=== PATIENT | female | born 1985 | race Caucasian/White ===

== ENCOUNTER 2022-04-22 10:46 | Emergency (ER) | payer MEDICAID ==
[~2022-04-22] VITALS: Ht 165.1 cm; Wt 70.0 kg
[~2022-04-22 10:46] MED LIST: INSU100V36 SQ; LANTUS SQ; ONDA8TAB9 PO; pantoprazole 40MG/NS 100ML BAG 100 ML IV ONE
[2022-04-22] MEDS ORDERED: pantoprazole 40 MG vial IV ONE (12:00)
[2022-04-22] MEDS ORDERED: normal saline 1000ML IV soln IVB ONE (12:00)
[2022-04-22] MEDS ORDERED: ondansetron/PF 4mg/2ml inj IV ONE (12:00)
[2022-04-22] MEDS ORDERED: LORazepam 2 mg/ml vial IV ONE (12:00)
[2022-04-22] MEDS ORDERED: pantoprazole 40MG/NS 100ML BAG 100 ML IV ONE (12:05)
[2022-04-22 12:50] LABS: BASOPHILS # (AUTO) 0.1 X10'3 (0-0.2); BASOPHILS % (AUTO) 0.6 % (0-1); EOSINOPHILS % (AUTO) 0.3 % (0-6); HEMATOCRIT 44.2 % (35.0-45.0); HEMOGLOBIN 14.5 g/dl (12.0-16.0); LYMPHOCYTES % (AUTO) 7.2 % (21-51); MEAN CORPUSCULAR HEMOGLOBIN 29.9 PG (27.0-31.0); MEAN CORPUSCULAR HGB CONC 32.7 g/dL (33.0-36.5); MEAN CORPUSCULAR VOLUME 91.4 FL (78-98); MEAN PLATELET VOLUME 8.2 FL (7.4-10.4); MONOCYTES # (AUTO) 0.3 X10'3 (0-0.9); MONOCYTES % (AUTO) 2.1 % (2-12); NEUTROPHILS # (AUTO) 13.1 X10'3 (1.8-7.7); NEUTROPHILS % (AUTO) 89.8 % (42-75); PLATELET COUNT 367 X10'3 (140-440); RED BLOOD COUNT 4.83 X10'6 (4.20-5.60); RED CELL DISTRIBUTION WIDTH 13.7 % (11.5-14.5); WHITE BLOOD COUNT 14.6 X10'3 (4.5-11.0)
[2022-04-22 13:09] LABS: HCG SERUM QL NEGATIVE
[2022-04-22 13:12] LABS: ALANINE AMINOTRANSFERASE 25 U/L (12-78); ALBUMIN 3.8 G/DL (3.4-5.0); ALKALINE PHOSPHATASE 44 IU/L (46-116); ANION GAP 8 (8-16); ASPARTATE AMINO TRANSFERASE 14 U/L (10-37); BILIRUBIN,TOTAL 0.5 MG/DL (0.1-1.0); BLOOD UREA NITROGEN 11 MG/DL (7-18); BUN/CREATININE RATIO 16.9 (6.6-38.0); CALCIUM 8.5 MG/DL (8.5-10.1); CHLORIDE 103 MMOL/L (99-107); CREATININE 0.65 MG/DL (0.40-0.90); GLUCOSE 275 MG/DL (70-104); LIPASE 52 U/L (73-393); POTASSIUM 3.8 MMOL/L (3.5-5.1); SODIUM 137 MMOL/L (135-145); TOTAL CARBON DIOXIDE 26.5 MMOL/L (24-32); TOTAL PROTEIN 7.5 G/DL (6.4-8.2); eGFR > 90 ML/MIN
[2022-04-22] MEDS ORDERED: PANT-47 PO (13:45)
[2022-04-22] MEDS ORDERED: ONDA8TAB13 PO (13:45)
[2022-04-22] MEDS ORDERED: metoclopramide 5 mg/ml inj IV ONE (14:00)
[2022-04-22 14:10] LABS: CLARITY,URINE SLIGHTLY CLOUDY (Clear); GLUCOSE, URINE >=1000 mg/dl (Neg); KETONES,URINE >=80 mg/dl (Neg); LEUKOCYTE ESTERASE ,URINE NEGATIVE (Neg); NITRITES, URINE POSITIVE (Neg); OCCULT BLOOD,URINE NEGATIVE (Neg); PH,URINE 6.5 (4.8-8.0); PROTEIN,URINE NEGATIVE (Neg); UROBILINOGEN,URINE 0.2 E.U/dL (0.2-1.0)
[2022-04-22 14:13] LABS: COLOR,URINE STRAW (Yellow); UA COLLECTION TYPE NON-SPECIFIED
[2022-04-22 14:17] LABS: BACTERIA,URINE 4+ /HPF (Neg); MUCUS STRANDS NONE SEEN /LPF (Neg); RBC,URINE NONE SEEN /HPF (0-2); SQUAMOUS EPITHELIAL CELL,UR MODERATE /LPF (FEW); TRANSITIONAL EPI CELLS,URINE FEW /HPF; WBC,URINE 0-4 /HPF (0-4)
[2022-04-22] MEDS ORDERED: NITR100C6 PO (14:30)
[2022-04-22 15:46] VITALS: BP 105/74
== END 2022-04-22 15:52 | disposition home or self-care (01) ==
LOC: ER 10:47
DX: K29.70 Gastritis, unspecified, without bleeding (principal); N39.0 Urinary tract infection, site not specified; E11.9 Type 2 diabetes mellitus without complications; F17.200 Nicotine dependence, unspecified, uncomplicated; Z88.8 Allergy status to other drugs, medicaments and biological substances; Z79.899 Other long term (current) drug therapy; Z79.84 Long term (current) use of oral hypoglycemic drugs
CPT/HCPCS: 36415; 71045; 80053; 81001; 82009; 83690; 84703; 85025; 87088; 87186; 96374; 96375; 99284; C9113; J2060; J2405; J2765; J7030; 87077

== ENCOUNTER 2022-11-20 16:53 | Emergency (ER) | payer MEDICAID ==
[~2022-11-20] VITALS: Ht 152.4 cm; Wt 53.6 kg
[~2022-11-20 16:53] MED LIST changes: +NITR100C6 PO; +ONDA8TAB13 PO; +PANT-47 PO; -pantoprazole 40MG/NS 100ML BAG 100 ML IV ONE
[2022-11-20] MEDS ORDERED: normal saline 1000ML IV soln IVB ONE (17:55)
[2022-11-20] MEDS ORDERED: morphine 4 MG/ML inj SYRINge IV PRN (17:55)
[2022-11-20] MEDS ORDERED: ondansetron/PF 4mg/2ml inj IV ONE (17:55)
[2022-11-20 18:41] LABS: BASOPHILS # (AUTO) 0.1 X10'3 (0-0.2); BASOPHILS % (AUTO) 0.6 % (0-1); EOSINOPHILS % (AUTO) 0 % (0-6); HEMATOCRIT 40.9 % (35.0-45.0); HEMOGLOBIN 13.5 g/dl (12.0-16.0); LYMPHOCYTES # (AUTO) 0.9 X10'3 (1.1-4.8); LYMPHOCYTES % (AUTO) 4.5 % (21-51); MEAN CORPUSCULAR HEMOGLOBIN 30.7 PG (27.0-31.0); MONOCYTES # (AUTO) 0.4 X10'3 (0-0.9); MONOCYTES % (AUTO) 1.9 % (2-12); NEUTROPHILS # (AUTO) 18.2 X10'3 (1.8-7.7); PLATELET COUNT 374 X10'3 (140-440); RED BLOOD COUNT 4.39 X10'6 (4.20-5.60); RED CELL DISTRIBUTION WIDTH 13.6 % (11.5-14.5); WHITE BLOOD COUNT 19.6 X10'3 (4.5-11.0)
[2022-11-20 18:47] LABS: ALANINE AMINOTRANSFERASE 38 U/L (12-78); ALBUMIN 4.1 G/DL (3.4-5.0); ALBUMIN/GLOBULIN RATIO 1.3 (1.1-1.5); ALKALINE PHOSPHATASE 54 IU/L (46-116); ANION GAP 11 (8-16); ASPARTATE AMINO TRANSFERASE 27 U/L (10-37); BILIRUBIN,TOTAL 0.9 MG/DL (0.1-1.0); BLOOD UREA NITROGEN 15 MG/DL (7-18); BUN/CREATININE RATIO 23.8 (10.0-20.0); CALCIUM 8.4 MG/DL (8.5-10.1); CHLORIDE 107 MMOL/L (99-107); CREATININE 0.63 MG/DL (0.40-0.90); GLUCOSE 317 MG/DL (70-104); POTASSIUM 3.8 MMOL/L (3.5-5.1); SODIUM 140 MMOL/L (135-145); TOTAL CARBON DIOXIDE 22.2 MMOL/L (24-32); TOTAL PROTEIN 7.3 G/DL (6.4-8.2); eGFR > 90 ML/MIN
[2022-11-20 18:51] LABS: LIPASE < 50 U/L (73-393)
[2022-11-20 19:39] LABS: CLARITY,URINE CLEAR (Clear); COLOR,URINE YELLOW (Yellow); GLUCOSE, URINE >=1000 mg/dl (Neg); KETONES,URINE >=80 mg/dl (Neg); LEUKOCYTE ESTERASE ,URINE NEGATIVE (Neg); NITRITES, URINE NEGATIVE (Neg); OCCULT BLOOD,URINE TRACE-INTACT (Neg); PROTEIN,URINE NEGATIVE (Neg); UROBILINOGEN,URINE 0.2 E.U/dL (0.2-1.0)
[2022-11-20 19:41] LABS: PREOP HCG, QL SERUM NEGATIVE (NEGATIVE)
[2022-11-20 19:42] LABS: UA COLLECTION TYPE CLN CATCH MIDSTREAM
[2022-11-20 19:44] LABS: BACTERIA,URINE NONE SEEN /HPF (Neg); RBC,URINE 0-2 /HPF (0-2); SQUAMOUS EPITHELIAL CELL,UR MODERATE /LPF (FEW); WBC,URINE 0-4 /HPF (0-4)
[2022-11-20] MEDS ORDERED: iohexol 300mg/ml 100ml inj. ONE (19:52)
[2022-11-20] MEDS ORDERED: normal saline 1000ml 1,000 ML IV ONE (21:05)
[2022-11-20 23:00] VITALS: BP 107/64
[2022-11-20] MEDS ORDERED: magnesium hydroxide 30ml (MOM) UD suspension PO PRN (23:05)
[2022-11-20] MEDS ORDERED: ondansetron/PF 4mg/2ml inj IV PRN (23:05)
[2022-11-20] MEDS ORDERED: potassium Cl 40MEQ/1/2NS 520ml 520 ML IV PRN (23:05)
[2022-11-20] MEDS ORDERED: normal saline 1000ml 1,000 ML IV SCH (23:05)
[2022-11-20] MEDS ORDERED: mag hydrox/Alum hydrox/simeth 30ml oral suspension PO PRN (23:05)
[2022-11-20] MEDS ORDERED: metoclopramide 5 mg/ml inj IV PRN (23:05)
[2022-11-20] MEDS ORDERED: acetaminophen 325mg tablet PO PRN (23:05)
[2022-11-20] MEDS ORDERED: glucagon, human recombinant 1mg kit SUBCUT PRN (23:10)
[2022-11-20] MEDS ORDERED: insulin Lispro (HumaLOG) vial - multi-dose SQ SCH (23:10)
[2022-11-20] MEDS ORDERED: MESSAGE TO PHARMACY PO ONE (23:10)
[2022-11-20] MEDS ORDERED: dextrose 50%-water 50ml dispensing syringe IV PRN ×2 (23:10)
[2022-11-20] MEDS ORDERED: DEXTROSE 15 GM of carb/4 tabs (each vial/BOTTLE has 4 tablets) PO PRN ×2 (23:10)
[2022-11-20 23:46] LABS: HEMOGLOBIN A1C 9.7 % (4.5-6.2)
[2022-11-21] MEDS ORDERED: heparin, porcine 5000 units/ml vial SQ SCH
[2022-11-21] MEDS ORDERED: ONDA8TAB13 PO (00:19)
[2022-11-21] MEDS ORDERED: METO-292 PO (00:19)
--- NOTE | 2022-11-21 00:30 | NUR ---
PT REQUESTED TO LEAVE AMA. MD ANGUIANO AND ER DOCTOR AWARE AND WILL D/C.
[2022-11-21] MEDS ORDERED: K and/or MAG REPLACEMENT MC SCH (08:00)
[2022-11-21] MEDS ORDERED: pantoprazole 40MG/NS 100ML BAG 100 ML IV SCH (08:00)
[2022-11-21] MEDS ORDERED: docusate sod 100mg capsule PO SCH (08:00)
[2022-11-21] MEDS ORDERED: insulin glargine (Lantus) pen - multi-dose SQ SCH (21:00)
== END 2022-11-21 00:31 | disposition left against medical advice (07) ==
LOC: ER 16:53 → ED HOLD 23:03 → UNDOADMIN 23:03 → UNDODISIN 23:59 → ER 11-21 00:31
PROC: B4201ZZ Computerized Tomography (CT Scan) of Abdominal Aorta using Low Osmolar Contrast (ICD-10-PCS; principal; 2022-11-20)
PROC: B4241ZZ Computerized Tomography (CT Scan) of Superior Mesenteric Artery using Low Osmolar Contrast (ICD-10-PCS; 2022-11-20)
PROC: B4281ZZ Computerized Tomography (CT Scan) of Bilateral Renal Arteries using Low Osmolar Contrast (ICD-10-PCS; 2022-11-20)
PROC: B42C1ZZ Computerized Tomography (CT Scan) of Pelvic Arteries using Low Osmolar Contrast (ICD-10-PCS; 2022-11-20)
PROC: B42H1ZZ Computerized Tomography (CT Scan) of Bilateral Lower Extremity Arteries using Low Osmolar Contrast (ICD-10-PCS; 2022-11-20)
PROC: B4211ZZ Computerized Tomography (CT Scan) of Celiac Artery using Low Osmolar Contrast (ICD-10-PCS; 2022-11-20)
DX: K31.1 Adult hypertrophic pyloric stenosis (principal); E11.9 Type 2 diabetes mellitus without complications; F12.90 Cannabis use, unspecified, uncomplicated; Z88.1 Allergy status to other antibiotic agents; Z88.8 Allergy status to other drugs, medicaments and biological substances; Z98.890 Other specified postprocedural states
CPT/HCPCS: 36415; 71045; 74177; 80053; 81001; 82948; 83036; 83690; 84484; 84703; 85025; 96361; 96374; 96375; 99285; J2270; J2405; J2765; J3490; J7030; Q9967; G0378

== ENCOUNTER 2023-01-16 08:40 | Emergency (ER) | payer MEDICAID ==
[~2023-01-16] VITALS: Ht 154.9 cm; Wt 52.3 kg
[~2023-01-16 08:40] MED LIST changes: +METO-292 PO
[2023-01-16 09:41] VITALS: TEMP 98.3
[2023-01-16] MEDS ORDERED: metoclopramide 5 mg/ml inj IV ONE (09:45)
[2023-01-16] MEDS ORDERED: famotidine/PF 10 mg/ml inj IV ONE (09:45)
[2023-01-16] MEDS ORDERED: ondansetron/PF 4mg/2ml inj IV ONE (09:45)
[2023-01-16] MEDS ORDERED: normal saline 1000ML IV soln IVB ONE (09:45)
[2023-01-16 10:14] LABS: BASOPHILS # (AUTO) 0.1 X10'3 (0-0.2); BASOPHILS % (AUTO) 0.4 % (0-1); EOSINOPHILS % (AUTO) 0 % (0-6); HEMATOCRIT 39.8 % (35.0-45.0); HEMOGLOBIN 13.2 g/dl (12.0-16.0); LYMPHOCYTES # (AUTO) 0.9 X10'3 (1.1-4.8); LYMPHOCYTES % (AUTO) 6.6 % (21-51); MEAN CORPUSCULAR HEMOGLOBIN 30.4 PG (27.0-31.0); MEAN CORPUSCULAR HGB CONC 33.3 g/dL (33.0-36.5); MEAN CORPUSCULAR VOLUME 91.4 FL (78-98); MEAN PLATELET VOLUME 8.5 FL (7.4-10.4); MONOCYTES # (AUTO) 0.4 X10'3 (0-0.9); MONOCYTES % (AUTO) 2.9 % (2-12); NEUTROPHILS # (AUTO) 11.8 X10'3 (1.8-7.7); NEUTROPHILS % (AUTO) 90.1 % (42-75); PLATELET COUNT 315 X10'3 (140-440); RED BLOOD COUNT 4.35 X10'6 (4.20-5.60); RED CELL DISTRIBUTION WIDTH 13.2 % (11.5-14.5); WHITE BLOOD COUNT 13.1 X10'3 (4.5-11.0)
[2023-01-16 10:30] LABS: ALANINE AMINOTRANSFERASE 24 U/L (12-78); ALBUMIN 3.6 G/DL (3.4-5.0); ALBUMIN/GLOBULIN RATIO 1.2 (1.1-1.5); ALKALINE PHOSPHATASE 42 IU/L (46-116); ANION GAP 13 (8-16); ASPARTATE AMINO TRANSFERASE 19 U/L (10-37); BILIRUBIN,TOTAL 0.9 MG/DL (0.1-1.0); BLOOD UREA NITROGEN 6 MG/DL (7-18); BUN/CREATININE RATIO 10.2 (10.0-20.0); CALCIUM 7.9 MG/DL (8.5-10.1); CHLORIDE 104 MMOL/L (99-107); CREATININE 0.59 MG/DL (0.40-0.90); GLUCOSE 274 MG/DL (70-104); LIPASE 64 U/L (73-393); MAGNESIUM 1.6 MG/DL (1.5-2.4); POTASSIUM 3.4 MMOL/L (3.5-5.1); SODIUM 141 MMOL/L (135-145); TOTAL CARBON DIOXIDE 23.8 MMOL/L (24-32); TOTAL PROTEIN 6.7 G/DL (6.4-8.2); eGFR > 90 ML/MIN
[2023-01-16] MEDS ORDERED: POTASSIUM BICARB 20meq eff tab 20 MEQ TABLET.EFF PO STA (10:34)
[2023-01-16] MEDS ORDERED: normal saline 1000ml 1,000 ML IV ONE (10:35)
[2023-01-16] MEDS ORDERED: LORazepam 2 mg/ml vial IV ONE (10:45)
[2023-01-16 11:11] VITALS: BP 109/76; PULSE 80; RESP 20; O2SAT 99
[2023-01-16] MEDS ORDERED: PROC25SU2 RC (11:23)
== END 2023-01-16 12:21 | disposition home or self-care (01) ==
LOC: ER 08:41
DX: R11.2 Nausea with vomiting, unspecified (principal); E87.6 Hypokalemia; E11.43 Type 2 diabetes mellitus with diabetic autonomic (poly)neuropathy; K31.84 Gastroparesis; Z88.1 Allergy status to other antibiotic agents; Z88.5 Allergy status to narcotic agent; F17.200 Nicotine dependence, unspecified, uncomplicated; Z79.84 Long term (current) use of oral hypoglycemic drugs
CPT/HCPCS: 36415; 80053; 83690; 83735; 85025; 96361; 96365; 96375; 99284; J2060; J2405; J2765; J3490; J7030

== ENCOUNTER 2023-01-20 10:16 | Emergency (ER) | payer MEDICAID ==
[~2023-01-20] VITALS: Ht 152.4 cm; Wt 51.4 kg
[~2023-01-20 10:16] MED LIST changes: +PROC25SU2 RC
[2023-01-20 10:18] VITALS: TEMP 97.9
[2023-01-20 11:15] LABS: BASOPHILS # (AUTO) 0.1 X10'3 (0-0.2); BASOPHILS % (AUTO) 0.5 % (0-1); EOSINOPHILS % (AUTO) 0.3 % (0-6); HEMATOCRIT 38.3 % (35.0-45.0); HEMOGLOBIN 12.8 g/dl (12.0-16.0); LYMPHOCYTES % (AUTO) 8.6 % (21-51); MEAN CORPUSCULAR HEMOGLOBIN 30.6 PG (27.0-31.0); MEAN CORPUSCULAR HGB CONC 33.4 g/dL (33.0-36.5); MEAN CORPUSCULAR VOLUME 91.5 FL (78-98); MEAN PLATELET VOLUME 8.9 FL (7.4-10.4); MONOCYTES # (AUTO) 0.5 X10'3 (0-0.9); MONOCYTES % (AUTO) 4.5 % (2-12); NEUTROPHILS # (AUTO) 10.4 X10'3 (1.8-7.7); NEUTROPHILS % (AUTO) 86.1 % (42-75); PLATELET COUNT 328 X10'3 (140-440); RED BLOOD COUNT 4.18 X10'6 (4.20-5.60); RED CELL DISTRIBUTION WIDTH 13.3 % (11.5-14.5); WHITE BLOOD COUNT 12.1 X10'3 (4.5-11.0)
[2023-01-20 11:24] LABS: ALANINE AMINOTRANSFERASE 23 U/L (12-78); ALBUMIN 3.6 G/DL (3.4-5.0); ALBUMIN/GLOBULIN RATIO 1.2 (1.1-1.5); ALKALINE PHOSPHATASE 48 IU/L (46-116); ANION GAP 11 (8-16); ASPARTATE AMINO TRANSFERASE 13 U/L (10-37); BILIRUBIN,TOTAL 0.5 MG/DL (0.1-1.0); BLOOD UREA NITROGEN 8 MG/DL (7-18); BUN/CREATININE RATIO 13.8 (10.0-20.0); CALCIUM 7.5 MG/DL (8.5-10.1); CHLORIDE 106 MMOL/L (99-107); CREATININE 0.58 MG/DL (0.40-0.90); GLUCOSE 241 MG/DL (70-104); LIPASE 54 U/L (73-393); POTASSIUM 3.3 MMOL/L (3.5-5.1); SODIUM 142 MMOL/L (135-145); TOTAL CARBON DIOXIDE 25.5 MMOL/L (24-32); TOTAL PROTEIN 6.7 G/DL (6.4-8.2); eGFR > 90 ML/MIN
[2023-01-20] MEDS ORDERED: normal saline 1000ML IV soln IVB ONE (11:40)
[2023-01-20] MEDS ORDERED: proCHLORperazine 10 MG/2 ml inj IV ONE (11:40)
[2023-01-20] MEDS ORDERED: haloperidol lactate 5mg/ml inj IM ONE (11:40)
[2023-01-20 14:22] LABS: CLARITY,URINE CLOUDY (Clear); COLOR,URINE YELLOW (Yellow); GLUCOSE, URINE 500 mg/dl (Neg); KETONES,URINE 40 mg/dl (Neg); LEUKOCYTE ESTERASE ,URINE NEGATIVE (Neg); NITRITES, URINE NEGATIVE (Neg); OCCULT BLOOD,URINE NEGATIVE (Neg); PROTEIN,URINE NEGATIVE (Neg); UROBILINOGEN,URINE 0.2 E.U/dL (0.2-1.0)
[2023-01-20 14:27] LABS: UA COLLECTION TYPE CLN CATCH MIDSTREAM
[2023-01-20 14:29] LABS: BACTERIA,URINE 3+ /HPF (Neg); MUCUS STRANDS MANY /LPF (Neg); RBC,URINE NONE SEEN /HPF (0-2); WBC,URINE 0-4 /HPF (0-4)
[2023-01-20 14:30] LABS: CAL OXALATE CRYSTALS 1+ /HPF (NEGATIVE); SQUAMOUS EPITHELIAL CELL,UR MANY /LPF (FEW)
[2023-01-20 16:20] VITALS: BP 114/74; PULSE 90; RESP 20; O2SAT 98
== END 2023-01-20 16:23 | disposition home or self-care (01) ==
LOC: ER 10:16
DX: K31.84 Gastroparesis (principal); R10.9 Unspecified abdominal pain; E11.9 Type 2 diabetes mellitus without complications; F17.200 Nicotine dependence, unspecified, uncomplicated; F12.90 Cannabis use, unspecified, uncomplicated; Z88.1 Allergy status to other antibiotic agents; Z88.5 Allergy status to narcotic agent; Z88.8 Allergy status to other drugs, medicaments and biological substances; Z79.84 Long term (current) use of oral hypoglycemic drugs; Z79.899 Other long term (current) drug therapy; Z90.49 Acquired absence of other specified parts of digestive tract; Z98.890 Other specified postprocedural states; Z90.710 Acquired absence of both cervix and uterus
CPT/HCPCS: 36415; 80053; 81001; 83690; 85025; 96361; 96372; 96374; 99284; J0780; J1630; J7030